=== PATIENT | female | born 1980 | race Caucasian/White ===

== ENCOUNTER 2023-08-22 13:55 | Emergency (ER) | payer SELFPAY ==
[~2023-08-22] VITALS: Ht 162.6 cm; Wt 127.0 kg
[2023-08-22 15:34] VITALS: BP 96/49
[2023-08-22 15:36] VITALS: BP 125/75
[2023-08-22 15:45] VITALS: BP 115/72
[2023-08-22] MEDS ORDERED: ATORVASTATIN CA20 MG PO (15:51)
[2023-08-22] MEDS ORDERED: AMITRIPTYLINE H10 MG PO (15:51)
[2023-08-22] MEDS ORDERED: LEVOTHYROXIN50 MCG PO (15:52)
[2023-08-22] MEDS ORDERED: MECLIZINE25 MG PO (15:52)
[2023-08-22] MEDS ORDERED: CLONAZEPAM1 MG PO (15:52)
[2023-08-22] MEDS ORDERED: CYMBALTA60 MG PO (15:52)
[2023-08-22] MEDS ORDERED: ZOLPIDEM10 MG PO (15:53)
[2023-08-22 16:00] VITALS: BP 112/69
[2023-08-22 16:15] VITALS: BP 123/67
[2023-08-22] MEDS ORDERED: HYDROCO/APAP1 TA9 PO (17:11)
[2023-08-22] MEDS ORDERED: NAPROXEN500 MG PO (17:11)
[2023-08-22 17:37] VITALS: BP 123/67
== END 2023-08-22 17:44 | disposition home or self-care (01) | DRG 556 ==
LOC: ED 13:55
DX: M25.512 Pain in left shoulder (principal); E66.9 Obesity, unspecified

== ENCOUNTER 2023-09-06 18:16 | Emergency (ER) | payer SELFPAY ==
[~2023-09-06] VITALS: Ht 162.6 cm; Wt 104.0 kg
[~2023-09-06 18:16] MED LIST: AMITRIPTYLINE H10 MG PO; ATORVASTATIN CA20 MG PO; CLONAZEPAM1 MG PO; CYMBALTA60 MG PO; HYDROCO/APAP1 TA9 PO; LEVOTHYROXIN50 MCG PO; MECLIZINE25 MG PO; NAPROXEN500 MG PO; ZOLPIDEM10 MG PO
[2023-09-06 18:21] VITALS: BP 111/42
[2023-09-06 18:30] VITALS: BP 114/60
[2023-09-06 18:50] VITALS: BP 118/64
[2023-09-06 18:52] LABS: BASO% 0.1 % (0-3); EOS% 0.6 % (0-8); HEMOGLOBIN 11.9 g/dl (12.0-16.0); IMMATURE GRANULOCYTES 0.2 % (0.0-5.0); MEAN CELL VOLUME 90.2 fL CALC (80.0-100.0); MEAN CORPUSCULAR HGB CONC 32.2 g/dL CAL (32.0-36.0); MONO% 4.3 % (2-13); NEUT# 10.25 thou/uL (2.00-7.15); NEUT% 80.8 % (42-76); RED BLOOD COUNT 4.1 mill/uL (4.20-5.60); RED CELL DISTRI WIDTH 13.2 % (11.5-15.5)
[2023-09-06 19:05] LABS: ALKALINE PHOSPHATASE 104 u/l (38-126); ANION GAP 9 (6-22 (CALC)); BILIRUBIN, TOTAL 0.3 mg/dL (0.02-1.3); BUN 14 mg/dL (7-17); BUN/CREATININE RATIO 17 (12-20 (CALC)); CARBON DIOXIDE 28 mmol/l (22-30); CHLORIDE 105 mmol/l (95-108); CREATININE 0.8 mg/dL (0.5-1.0); GFR FOR AFR.AMER. > 60 ML/MIN (>=60 (CALC)); GFR OTHER RACES > 60 ML/MIN (>=60 (CALC)); POTASSIUM 3.6 mmol/l (3.5-5.1); SGOT/AST 31 u/l (14-36); SODIUM 138 mmol/l (137-146)
[2023-09-06 19:08] LABS: PROTHROMBIN TIME 9.8 SECONDS (9.0-12.5)
[2023-09-06 19:09] VITALS: BP 115/62
[2023-09-06 19:15] VITALS: BP 113/60
[2023-09-06 19:17] LABS: URINE BILIRUBIN - DIPSTICK Negative (NEGATIVE); URINE BLOOD DIPSTICK Negative (NEGATIVE); URINE GLUCOSE - DIPSTICK Negative (NEGATIVE); URINE KETONE Negative (NEGATIVE); URINE LEUK ESTERASE Negative (NEGATIVE); URINE NITRITE - DIPSTICK Negative (Negative); URINE PROTEIN - DIPSTICK Negative (NEG-TRACE); URINE SPECIFIC GRAVITY 1.025; URINE UROBILINOGEN - DIPSTICK 0.2 E.U./dL (0.2)
[2023-09-06 19:19] LABS: URINE COLOR Yellow
[2023-09-06] MEDS ORDERED: VIBRAMYCIN100 M2 PO (20:59)
[2023-09-06 21:08] VITALS: BP 113/60
== END 2023-09-06 22:08 | disposition home or self-care (01) | DRG 195 ==
LOC: ED 18:16
PROVIDERS: Family Medicine
DX: J18.9 Pneumonia, unspecified organism (principal); R06.02 Shortness of breath
CPT/HCPCS: Q9967

== ENCOUNTER 2023-09-17 14:08 | Observation (INO) | payer SELFPAY ==
[2023-09-17] VITALS (22 sets, daily range): BP systolic 88–141; BP diastolic 38–85
[~2023-09-17] VITALS: Ht 162.6 cm; Wt 128.2 kg
[~2023-09-17 14:08] MED LIST changes: +VIBRAMYCIN100 M2 PO
[2023-09-17 14:37] LABS: BASO% 0.3 % (0-3); HEMATOCRIT 36.5 % (37.0-47.0); HEMOGLOBIN 11.9 g/dl (12.0-16.0); IMMATURE GRANULOCYTES 0.1 % (0.0-5.0); LYMPH% 18.6 % (15-41); MEAN CELL VOLUME 90.3 fL CALC (80.0-100.0); MEAN CORPUSCULAR HGB 29.5 pG CALC (26.0-32.0); MEAN CORPUSCULAR HGB CONC 32.6 g/dL CAL (32.0-36.0); MONO% 6.4 % (2-13); NEUT# 7.77 thou/uL (2.00-7.15); NEUT% 73.6 % (42-76); RED BLOOD COUNT 4.04 mill/uL (4.20-5.60); RED CELL DISTRI WIDTH 13.6 % (11.5-15.5)
[2023-09-17 14:51] LABS: ALBUMIN 4.1 g/dL (3.2-5.0); ALKALINE PHOSPHATASE 92 u/l (38-126); ANION GAP 11 (6-22 (CALC)); BILIRUBIN, TOTAL 0.4 mg/dL (0.02-1.3); BUN 20 mg/dL (7-17); BUN/CREATININE RATIO 22 (12-20 (CALC)); CARBON DIOXIDE 24 mmol/l (22-30); CHLORIDE 107 mmol/l (95-108); CREATININE 0.9 mg/dL (0.5-1.0); GFR FOR AFR.AMER. > 60 ML/MIN (>=60 (CALC)); GFR OTHER RACES > 60 ML/MIN (>=60 (CALC)); POTASSIUM 3.9 mmol/l (3.5-5.1); SGOT/AST 28 u/l (14-36); SODIUM 138 mmol/l (137-146); TOTAL PROTEIN 7.2 g/dL (6.3-8.2)
[2023-09-17] MEDS ORDERED: METHOCARBAMOL750 MG PO (17:23)
[2023-09-18 04:33] VITALS: BP 95/53
[2023-09-18 06:50] VITALS: BP 91/49
[2023-09-18 07:06] LABS: ANION GAP 9 (6-22 (CALC)); BUN 17 mg/dL (7-17); BUN/CREATININE RATIO 21 (12-20 (CALC)); CARBON DIOXIDE 24 mmol/l (22-30); CHLORIDE 109 mmol/l (95-108); CREATININE 0.8 mg/dL (0.5-1.0); GFR FOR AFR.AMER. > 60 ML/MIN (>=60 (CALC)); GFR OTHER RACES > 60 ML/MIN (>=60 (CALC)); MAGNESIUM 1.7 mg/dL (1.6-2.3); POTASSIUM 3.8 mmol/l (3.5-5.1); SODIUM 137 mmol/l (137-146)
[2023-09-18 07:30] LABS: BASO% 0.4 % (0-3); EOS% 1.4 % (0-8); HEMATOCRIT 36.4 % (37.0-47.0); HEMOGLOBIN 11.5 g/dl (12.0-16.0); IMMATURE GRANULOCYTES 0.3 % (0.0-5.0); LYMPH% 23.4 % (15-41); MEAN CORPUSCULAR HGB 28.8 pG CALC (26.0-32.0); MEAN CORPUSCULAR HGB CONC 31.6 g/dL CAL (32.0-36.0); MONO% 6.5 % (2-13); NEUT# 5.2 thou/uL (2.00-7.15); RED CELL DISTRI WIDTH 13.9 % (11.5-15.5)
[2023-09-18 08:01] VITALS: BP 102/64
[2023-09-18 10:34] VITALS: BP 119/66
[2023-09-18] MEDS ORDERED: ASPIRIN LOW81 M1 PO (11:08)
== END 2023-09-18 13:23 | disposition home or self-care (01) | DRG 313 ==
LOC: ED 14:08 → ED-I 17:02 → ED 17:22 → MS2 17:23
PROVIDERS: Family Medicine; ADMIT Student in an Organized Health Care Education/Training Program; ATTEND Student in an Organized Health Care Education/Training Program
DX: R07.9 Chest pain, unspecified (principal); M79.7 Fibromyalgia; F41.9 Anxiety disorder, unspecified; F32.A Depression, unspecified; E78.5 Hyperlipidemia, unspecified; E03.9 Hypothyroidism, unspecified; M25.512 Pain in left shoulder; E66.01 Morbid (severe) obesity due to excess calories
CPT/HCPCS: G0378

== ENCOUNTER 2023-09-26 18:02 | Emergency (ER) | payer SELFPAY ==
[~2023-09-26] VITALS: Ht 162.6 cm; Wt 129.2 kg
[~2023-09-26 18:02] MED LIST changes: +ASPIRIN LOW81 M1 PO; +METHOCARBAMOL750 MG PO
[2023-09-26 18:09] VITALS: BP 146/87
[2023-09-26 18:48] LABS: BASO% 0.2 % (0-3); EOS% 1.1 % (0-8); HEMATOCRIT 36.7 % (37.0-47.0); HEMOGLOBIN 11.6 g/dl (12.0-16.0); IMMATURE GRANULOCYTES 0.2 % (0.0-5.0); LYMPH% 21.9 % (15-41); MEAN CORPUSCULAR HGB 29.1 pG CALC (26.0-32.0); MEAN CORPUSCULAR HGB CONC 31.6 g/dL CAL (32.0-36.0); MONO% 5.9 % (2-13); NEUT# 6.42 thou/uL (2.00-7.15); NEUT% 70.7 % (42-76); RED BLOOD COUNT 3.99 mill/uL (4.20-5.60); RED CELL DISTRI WIDTH 13.7 % (11.5-15.5)
[2023-09-26 19:02] LABS: ALKALINE PHOSPHATASE 98 u/l (38-126); BUN 14 mg/dL (7-17); BUN/CREATININE RATIO 15 (12-20 (CALC)); CHLORIDE 104 mmol/l (95-108); CREATININE 0.9 mg/dL (0.5-1.0); GFR FOR AFR.AMER. > 60 ML/MIN (>=60 (CALC)); GFR OTHER RACES > 60 ML/MIN (>=60 (CALC)); POTASSIUM 4.2 mmol/l (3.5-5.1); SGOT/AST 26 u/l (14-36); SODIUM 140 mmol/l (137-146); TOTAL PROTEIN 6.7 g/dL (6.3-8.2)
[2023-09-26 19:03] LABS: ANION GAP 8 (6-22 (CALC)); BILIRUBIN, TOTAL 0.2 mg/dL (0.02-1.3); CARBON DIOXIDE 32 mmol/l (22-30)
[2023-09-26 19:07] LABS: URINE BILIRUBIN - DIPSTICK Negative (NEGATIVE); URINE BLOOD DIPSTICK Large (NEGATIVE); URINE GLUCOSE - DIPSTICK Negative (NEGATIVE); URINE KETONE Negative (NEGATIVE); URINE LEUK ESTERASE Trace (NEGATIVE); URINE NITRITE - DIPSTICK Negative (Negative); URINE PH 8.5 (4.5-8.0); URINE PROTEIN - DIPSTICK Negative (NEG-TRACE); URINE SPECIFIC GRAVITY 1.015; URINE UROBILINOGEN - DIPSTICK 0.2 E.U./dL (0.2)
[2023-09-26 19:14] LABS: URINE COLOR Yellow
[2023-09-26 19:17] LABS: URINE AMORPH SEDIMENT MANY hpf (NONE-FEW); URINE SQUAMOUS EPITHELIAL CELL FEW EPI/hpf (0-FEW)
[2023-09-26] MEDS ORDERED: PHENAZOPYRIDIN100 M1 PO (19:52)
[2023-09-26] MEDS ORDERED: BACTRIM DS1 TAB PO (19:52)
[2023-09-26 23:40] VITALS: BP 146/87
== END 2023-09-26 23:45 | disposition home or self-care (01) | DRG 690 ==
LOC: ED 18:02
PROVIDERS: Nurse Practitioner Family
DX: N39.0 Urinary tract infection, site not specified (principal); F41.9 Anxiety disorder, unspecified; F32.A Depression, unspecified; Z87.442 Personal history of urinary calculi

== ENCOUNTER 2024-02-20 12:13 | Emergency (ER) | payer SELFPAY ==
[~2024-02-20] VITALS: Ht 162.6 cm; Wt 104.3 kg
[~2024-02-20 12:13] MED LIST changes: +BACTRIM DS1 TAB PO; +MEDDOSEPAK PO; +MOTRIN800 MG PO; +ONDANSETRON4 MG PO; +PHENAZOPYRIDIN100 M1 PO; +ROBITUSSIN AC10 ML PO; +VOLTAREN - GENE75 MG PO; +ZPAK PO
[2024-02-20 12:39] VITALS: BP 113/62
[2024-02-20 12:46] VITALS: BP 109/63
[2024-02-20] MEDS ORDERED: LIDOcaine HCl 1% (Local Anesth.) 20 ML VIAL STI ONE (12:55)
[2024-02-20 13:01] VITALS: BP 76/59
[2024-02-20 13:07] VITALS: BP 101/54
[2024-02-20 13:15] VITALS: BP 101/51
[2024-02-20 13:22] VITALS: BP 101/51
== END 2024-02-20 13:46 | disposition home or self-care (01) | DRG 159 ==
LOC: ED 12:13
PROC: 3E0T3BZ Introduction of Anesthetic Agent into Peripheral Nerves and Plexi, Percutaneous Approach (ICD-10-PCS; principal; 2024-02-20)
DX: K02.9 Dental caries, unspecified (principal); S02.5XXA Fracture of tooth (traumatic), initial encounter for closed fracture; F41.9 Anxiety disorder, unspecified; F32.A Depression, unspecified; X58.XXXA Exposure to other specified factors, initial encounter

== ENCOUNTER 2024-03-12 16:01 | Emergency (ER) | payer SELFPAY ==
[~2024-03-12] VITALS: Ht 162.6 cm; Wt 127.4 kg
[2024-03-12] MEDS ORDERED: CLINDAMYCIN300 M1 PO (16:56)
[2024-03-12] MEDS ORDERED: NAPROXEN 250 MG/TAB PO ONE (17:00)
[2024-03-12 17:04] VITALS: BP 103/61
[2024-03-12 17:08] VITALS: BP 103/61
== END 2024-03-12 17:09 | disposition home or self-care (01) | DRG 159 ==
LOC: ED 16:01
DX: K08.89 Other specified disorders of teeth and supporting structures (principal); E66.01 Morbid (severe) obesity due to excess calories; F41.9 Anxiety disorder, unspecified; F32.A Depression, unspecified

== ENCOUNTER 2024-08-02 16:24 | Emergency (ER) | payer SELFPAY ==
[~2024-08-02] VITALS: Ht 162.6 cm; Wt 122.0 kg
[~2024-08-02 16:24] MED LIST changes: +CLINDAMYCIN300 M1 PO; +IBUPROFEN600 MG PO; +METHOCARBAMOL500 MG PO; +PREDNISONE50 MG PO
[2024-08-02 17:18] VITALS: BP 109/66
[2024-08-02 17:30] VITALS: BP 104/60
[2024-08-02 17:51] LABS: BASO% 0.2 % (0-3); HEMOGLOBIN 12.2 g/dl (12.0-16.0); IMMATURE GRANULOCYTES 0.1 % (0.0-5.0); LYMPH% 24.4 % (15-41); MEAN CELL VOLUME 89.8 fL CALC (80.0-100.0); MEAN CORPUSCULAR HGB 28.8 pG CALC (26.0-32.0); MEAN CORPUSCULAR HGB CONC 32.1 g/dL CAL (32.0-36.0); MONO% 5.9 % (2-13); NEUT# 5.73 thou/uL (2.00-7.15); NEUT% 68.4 % (42-76); RED BLOOD COUNT 4.23 mill/uL (4.20-5.60)
[2024-08-02 17:58] LABS: HCG SERUM/URINE (NEG/POS) NEGATIVE (NEGATIVE)
[2024-08-02 18:00] VITALS: BP 102/59
[2024-08-02 18:03] LABS: ALBUMIN 4.3 g/dL (3.2-5.0); ALKALINE PHOSPHATASE 81 u/l (38-126); ANION GAP 12 (6-22 (CALC)); BILIRUBIN, TOTAL 0.4 mg/dL (0.02-1.3); BUN 10 mg/dL (7-17); BUN/CREATININE RATIO 11 (12-20 (CALC)); CARBON DIOXIDE 31 mmol/l (22-30); CHLORIDE 103 mmol/l (95-108); CREATININE 0.9 mg/dL (0.5-1.0); ESTIMATED GFR 82 ML/MIN (>=90 (CALC)); POTASSIUM 3.3 mmol/l (3.5-5.1); SGOT/AST 27 u/l (14-36); SODIUM 143 mmol/l (137-146); TOTAL PROTEIN 7.3 g/dL (6.3-8.2)
[2024-08-02] MEDS ORDERED: ONDANSETRON 4 MG/TAB ODT PO ONE (18:15)
[2024-08-02] MEDS ORDERED: HYDROmorphone HCL 2 MG/AMP IV ONE (18:15)
[2024-08-02 19:27] VITALS: BP 102/59
== END 2024-08-02 19:34 | disposition home or self-care (01) | DRG 313 ==
LOC: ED 16:24
PROVIDERS: Family Medicine
DX: R07.9 Chest pain, unspecified (principal); F41.9 Anxiety disorder, unspecified; F32.A Depression, unspecified; Z20.822 Contact with and (suspected) exposure to COVID-19

== ENCOUNTER 2024-09-24 16:44 | Emergency (ER) | payer SELFPAY ==
[~2024-09-24] VITALS: Ht 162.6 cm; Wt 118.0 kg
[2024-09-24 17:05] VITALS: BP 124/65
[2024-09-24 17:15] VITALS: BP 110/59
[2024-09-24 17:30] VITALS: BP 122/65
[2024-09-24] MEDS ORDERED: traMADol HCL 50 MG/TAB PO ONE (17:40)
[2024-09-24] MEDS ORDERED: HYDROcodone 5 MG/Acetaminophen 325 MG/COMBO PO ONE ×2 (18:10→20:45)
[2024-09-24 18:15] VITALS: BP 100/67
[2024-09-24 18:30] VITALS: BP 113/70
[2024-09-24 21:46] VITALS: BP 113/70
== END 2024-09-24 21:46 | disposition home or self-care (01) | DRG 556 ==
LOC: ED 16:44
DX: M25.512 Pain in left shoulder (principal); M25.551 Pain in right hip; M25.561 Pain in right knee; M54.2 Cervicalgia; M47.816 Spondylosis without myelopathy or radiculopathy, lumbar region

== ENCOUNTER 2024-09-30 12:40 | Emergency (ER) | payer SELFPAY ==
[~2024-09-30] VITALS: Ht 162.6 cm; Wt 117.9 kg
[2024-09-30] VITALS (11 sets, daily range): BP systolic 95–119; BP diastolic 53–72
[2024-09-30] MEDS ORDERED: SODIUM CHLORIDE 0.9% 1,000 ML IV ONE (13:05)
[2024-09-30] MEDS ORDERED: MORPHINE SULFATE 4 MG/ML VIAL IV ONE (13:05)
[2024-09-30] MEDS ORDERED: ONDANSETRON HCl 4 MG/2 ML SDV IV ONE (13:05)
[2024-09-30 13:16] LABS: BASO% 0.4 % (0-3); EOS% 0.9 % (0-8); HEMATOCRIT 42.6 % (37.0-47.0); HEMOGLOBIN 13.5 g/dl (12.0-16.0); IMMATURE GRANULOCYTES 0.1 % (0.0-5.0); LYMPH% 20.3 % (15-41); MEAN CELL VOLUME 90.4 fL CALC (80.0-100.0); MEAN CORPUSCULAR HGB 28.7 pG CALC (26.0-32.0); MEAN CORPUSCULAR HGB CONC 31.7 g/dL CAL (32.0-36.0); MONO% 5.6 % (2-13); NEUT# 7.76 thou/uL (2.00-7.15); NEUT% 72.7 % (42-76); RED BLOOD COUNT 4.71 mill/uL (4.20-5.60)
[2024-09-30 13:21] LABS: URINE BLOOD DIPSTICK Large (NEGATIVE); URINE GLUCOSE - DIPSTICK Negative (NEGATIVE); URINE KETONE Trace mg/dL (NEGATIVE); URINE NITRITE - DIPSTICK Negative (Negative); URINE PH 6.5 (4.5-8.0); URINE PROTEIN - DIPSTICK 30 mg/dL (NEG-TRACE); URINE SPECIFIC GRAVITY 1.025
[2024-09-30 13:22] LABS: URINE COLOR Yellow; URINE LEUK ESTERASE Small (NEGATIVE)
[2024-09-30 13:24] LABS: URINE BACTERIA FEW hpf; URINE EPITHELIAL CELLS MODERATE EPI/hpf (0-FEW); URINE MUCUS MANY hpf (NONE-FEW)
[2024-09-30] MEDS ORDERED: HYDROmorphone HCL 2 MG/AMP IV ONE (13:30)
[2024-09-30 13:39] LABS: ALBUMIN 4.7 g/dL (3.2-5.0); CREATININE 0.9 mg/dL (0.5-1.0); POTASSIUM 3.6 mmol/l (3.5-5.1); TOTAL PROTEIN 8.1 g/dL (6.3-8.2)
[2024-09-30 13:41] LABS: BILIRUBIN, TOTAL 0.7 mg/dL (0.02-1.3)
[2024-09-30] MEDS ORDERED: DIAZEPAM5 MG PO (15:39)
[2024-09-30] MEDS ORDERED: KEFLEX500 MG PO (15:41)
== END 2024-09-30 16:10 | disposition home or self-care (01) | DRG 392 ==
LOC: ED 12:40
PROVIDERS: Nurse Practitioner Family
DX: R10.9 Unspecified abdominal pain (principal); Z87.442 Personal history of urinary calculi
CPT/HCPCS: J1171; J2405

== ENCOUNTER 2024-11-11 11:57 | Emergency (ER) | payer SELFPAY ==
[2024-11-11] VITALS (10 sets, daily range): BP systolic 92–143; BP diastolic 38–85
[~2024-11-11] VITALS: Ht 162.6 cm; Wt 112.0 kg
[~2024-11-11 11:57] MED LIST changes: +DIAZEPAM5 MG PO; +KEFLEX500 MG PO
[2024-11-11] MEDS ORDERED: HYDROmorphone HCL 2 MG/AMP IM ONE (12:10)
[2024-11-11] MEDS ORDERED: methylPREDNISolone SODIUM SUCC 125 MG/2 ML SDV IV ONE (12:15)
[2024-11-11] MEDS ORDERED: ONDANSETRON HCl 4 MG/2 ML SDV IV ONE (12:45)
[2024-11-11 13:06] LABS: BASO% 0.3 % (0-3); EOS% 1.6 % (0-8); HEMATOCRIT 37.8 % (37.0-47.0); IMMATURE GRANULOCYTES 0.1 % (0.0-5.0); LYMPH% 25.3 % (15-41); MEAN CELL VOLUME 91.1 fL CALC (80.0-100.0); MEAN CORPUSCULAR HGB 28.9 pG CALC (26.0-32.0); MEAN CORPUSCULAR HGB CONC 31.7 g/dL CAL (32.0-36.0); MONO% 6.6 % (2-13); NEUT# 5.69 thou/uL (2.00-7.15); NEUT% 66.1 % (42-76); RED BLOOD COUNT 4.15 mill/uL (4.20-5.60); RED CELL DISTRI WIDTH 13.4 % (11.5-15.5)
[2024-11-11 13:28] LABS: ALBUMIN 3.9 g/dL (3.2-5.0); BILIRUBIN, TOTAL 0.6 mg/dL (0.02-1.3); CREATININE 0.8 mg/dL (0.5-1.0); POTASSIUM 3.9 mmol/l (3.5-5.1)
[2024-11-11] MEDS ORDERED: HYDROmorphone HCL 2 MG/AMP IV ONE (13:30)
[2024-11-11 15:55] LABS: URINE BILIRUBIN - DIPSTICK Negative (NEGATIVE); URINE BLOOD DIPSTICK Moderate (NEGATIVE); URINE GLUCOSE - DIPSTICK Negative (NEGATIVE); URINE KETONE Negative (NEGATIVE); URINE LEUK ESTERASE Trace (NEGATIVE); URINE NITRITE - DIPSTICK Negative (Negative); URINE PROTEIN - DIPSTICK Trace mg/dL (NEG-TRACE)
[2024-11-11 15:57] LABS: URINE COLOR Yellow
[2024-11-11] MEDS ORDERED: ORPHENADRINE CITRATE 30 MG/ML AMP IV ONE (16:10)
[2024-11-11 16:13] LABS: URINE BACTERIA MODERATE hpf; URINE SQUAMOUS EPITHELIAL CELL MODERATE EPI/hpf (0-FEW)
[2024-11-11] MEDS ORDERED: METHOCARBAMOL500 MG PO (16:17)
== END 2024-11-11 16:28 | disposition home or self-care (01) | DRG 552 ==
LOC: ED 11:57
PROVIDERS: Clinical Nurse Specialist Emergency
DX: M54.50 Low back pain, unspecified (principal)
CPT/HCPCS: J1171; J2360; J2405

== ENCOUNTER 2024-11-12 12:06 | Emergency (ER) | payer SELFPAY ==
[~2024-11-12] VITALS: Ht 162.6 cm; Wt 117.0 kg
[2024-11-12 12:36] VITALS: BP 133/64
[2024-11-12 12:45] VITALS: BP 115/70
[2024-11-12 13:00] VITALS: BP 113/64
[2024-11-12] MEDS ORDERED: HYDROmorphone HCL 2 MG/AMP IM ONE (13:10)
[2024-11-12 13:16] LABS: URINE BILIRUBIN - DIPSTICK Negative (NEGATIVE); URINE BLOOD DIPSTICK Trace-lysed (NEGATIVE); URINE CLARITY Clear; URINE GLUCOSE - DIPSTICK Negative (NEGATIVE); URINE KETONE Negative (NEGATIVE); URINE LEUK ESTERASE Negative (Negative); URINE NITRITE - DIPSTICK Negative (Negative); URINE PROTEIN - DIPSTICK Negative (NEG-TRACE); URINE UROBILINOGEN - DIPSTICK 0.2 E.U./dL (0.2)
[2024-11-12 13:17] VITALS: BP 113/64
[2024-11-12 13:23] LABS: URINE COLOR Yellow
[2024-11-13] MEDS ORDERED: LORTAB 5/3255 MG PO (22:35)
[2024-11-13] MEDS ORDERED: PREDNISONE50 MG PO (22:35)
== END 2024-11-12 13:18 | disposition home or self-care (01) | DRG 552 ==
LOC: ED 12:06
PROVIDERS: Family Medicine
DX: M54.42 Lumbago with sciatica, left side (principal); M54.41 Lumbago with sciatica, right side
CPT/HCPCS: J1171

== ENCOUNTER 2024-11-13 20:19 | Emergency (ER) | payer SELFPAY ==
[~2024-11-13] VITALS: Ht 162.6 cm; Wt 120.0 kg
[2024-11-13] MEDS ORDERED: diazePAM 10 MG/2 ML VIAL IM ONE (22:30)
[2024-11-13] MEDS ORDERED: HYDROmorphone HCL 2 MG/AMP IM ONE (22:30)
[2024-11-13] MEDS ORDERED: PROMETHAZINE HCL 25 MG/ML AMP IM ONE (22:30)
[2024-11-13] MEDS ORDERED: PREDNISONE50 MG PO (22:35)
[2024-11-13] MEDS ORDERED: LORTAB 5/3255 MG PO (22:35)
[2024-11-13 23:00] VITALS: BP 105/68
== END 2024-11-13 23:00 | disposition home or self-care (01) | DRG 552 ==
LOC: ED 20:19
DX: M54.50 Low back pain, unspecified (principal)
CPT/HCPCS: J1171; J2550; J3360